=== PATIENT | male | born 1965 | race Caucasian/White ===

== ENCOUNTER 2025-05-14 07:04 | Day surgery (SDC) | payer OTHER ==
[~2025-05-14] VITALS: Ht 172.7 cm; Wt 83.4 kg
[~2025-05-14 07:04] MED LIST: ALBU18HF12 IH; AZEL137S8 NASAL; FAMO20 PO; FLUT12AE3 IH; FLUT16SP NASAL; LORA10TA7 PO; PRED10TA3 PO; SODIUM CHLORIDE 0.9% 1,000 ML ONE; TIOT4MIS2 IH
[2025-05-14] MEDS ORDERED: PARO-38 PO (07:34)
[2025-05-14] MEDS ORDERED: TIOT185 IH (07:34)
[2025-05-14] MEDS ORDERED: CEFU250T87 PO (07:34)
[2025-05-14] MEDS ORDERED: ESCI-8 PO (07:34)
[2025-05-14] MEDS ORDERED: ICOS0.5C PO (07:34)
[2025-05-14] MEDS ORDERED: FAMO20 PO (07:34)
[2025-05-14] MEDS ORDERED: MONT-35 PO (07:34)
[2025-05-14] MEDS ORDERED: MIDAZOLAM HCL 2 MG/2 ML VIAL ONE (08:09)
[2025-05-14] MEDS ORDERED: FentaNYL CITRATE PF 100 MCG/2 ML VIAL ONE (08:09)
[2025-05-14] MEDS: SODIUM CHLORIDE 0.9% 1,000 ML IV ONE (08:13)
[2025-05-14 10:30] VITALS: PULSE 60; RESP 16; O2SAT 100
[2025-05-14] MEDS ORDERED: LIDOCAINE 4% 50 ML SOLUTION ONE (12:00)
[2025-05-14] MEDS ORDERED: LIDOCAINE 2% 11 ML JELLY ONE (12:00)
[2025-05-14] MEDS ORDERED: BENZOCAINE 20% 50 MCG/SPRAY 57 GM ONE (12:00)
[2025-05-14] MEDS ORDERED: ALBUTEROL SULFATE 2.5 MG/0.5 ML NEB SOLUTION NEB ONE (12:00)
== END 2025-05-14 13:45 | disposition home or self-care (01) ==
LOC: SDS 07:04 → EDSEX 10:00 → SDS 13:45
PROVIDERS: ATTEND Internal Medicine Critical Care Medicine
DX: R05.3 Chronic cough (principal); J38.4 Edema of larynx; B37.0 Candidal stomatitis; Z72.89 Other problems related to lifestyle; J45.909 Unspecified asthma, uncomplicated; G47.00 Insomnia, unspecified; Z98.890 Other specified postprocedural states
CPT/HCPCS: 31623; 87206; 87101; 87220; 87070; 88108; 31624; 94640; 71045; 87015; J3010; J2250; J2919; J7030; J7613; Z7610